=== PATIENT | female | born 2000 | race Caucasian/White ===

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

== ENCOUNTER 2022-02-20 09:58 | Emergency (ER) | payer OTHER ==
[2022-02-20 10:06] VITALS: BP 141/85; PULSE 80; TEMP 97.7; BMI 34.8
[2022-02-20] MEDS ORDERED: FLUCONAZOLE 150 MG TABLET PO ONE ×2 (10:46→11:36)
[2022-02-20 11:30] LABS: HCG,QUALITATIVE URINE Negative
[2022-02-20 11:32] LABS: URINE APPEARANCE CLOUDY; URINE BILIRUBIN NEGATIVE (NEGATIVE); URINE COLOR YELLOW; URINE GLUCOSE (UA) NEGATIVE (NEGATIVE); URINE KETONE TRACE (NEGATIVE)
[2022-02-20 11:33] LABS: PH,URINE 5.5 (5.0-8.0); URINE LEUK ESTERASE 2+ (NEGATIVE); URINE NITRITE NEGATIVE (NEGATIVE); URINE PROTEIN TRACE (NEGATIVE)
[2022-02-20 13:39] LABS: EPI CELLS >36 /uL (0-25.1); HYALINE CASTS 7 /uL (0-3.1); URINE BACTERIA 618 /uL (0-1359); URINE RBC 20 /uL (0-23.9); URINE WBC 271 /uL (0-25.8)
[2022-02-20 14:08] LABS: URINE CRYSTALS NEGATIVE /hpf
== END 2022-02-20 11:56 | disposition home or self-care (01) ==
LOC: JERFT 09:58 → JER 09:58 → JERFT 11:56
DX: N76.0 Acute vaginitis (principal)
CPT/HCPCS: 36415; 81003; 84703; 86593; 86780; 87070; 87086; 87205; 87491; 87529; 87591; 99283-25

== ENCOUNTER 2023-02-05 12:45 | Emergency (ER) | payer SELFPAY ==
[2023-02-05 12:50] VITALS: BP 132/72; PULSE 78; RESP 20; TEMP 98; BMI 31.4
[2023-02-05 13:18] LABS: BASO % 0.3 % (0-2.0); EOS % 0.1 % (0-4.5); HEMATOCRIT 40.4 % (32.4-45.2); HEMOGLOBIN 13.4 GM/dL (10.7-15.3); LYMPH % 15.6 % (8-40); MCH 28.3 pg (25.7-33.7); MCHC 33.2 g/dl (32.0-36.0); MEAN CELL VOLUME 85.4 fl (80-96); MEAN PLT VOLUME 10.9 fl (7.5-11.1); MONO % 4.8 % (3.8-10.2); NEUT % 79.2 % (42.8-82.8); PLATELET COUNT 197 10^3/uL (134-434); RBC 4.73 M/mm3 (3.60-5.2); WHITE BLOOD COUNT 11.7 K/mm3 (4.0-10.0)
[2023-02-05 13:22] LABS: HCG,QUALITATIVE URINE Negative
[2023-02-05] MEDS ORDERED: SODIUM CHLORIDE 1,000 ML IV STA ×2 (13:55→14:49)
[2023-02-05] MEDS ORDERED: ACETAMINOPHEN 1000 MG/100 ML BAG IVPB ONE ×2 (13:55→14:49)
[2023-02-05] MEDS ORDERED: FAMOTIDINE 20 MG/50 ML IVPB 20 MG/50 ML MG IVPB ONE ×3 (13:55→14:58)
[2023-02-05] MEDS ORDERED: ONDANSETRON 4 MG/2 ML VIAL IVPUSH ONE ×3 (13:55→15:29)
[2023-02-05] MEDS ORDERED: FAMOTIDINE 20 MG TABLET PO ONE (14:03)
[2023-02-05] MEDS ORDERED: ONDANSETRON 4 MG TABLET PO ONE (14:03)
[2023-02-05] MEDS ORDERED: ACETAMINOPHEN 500 MG TABLET (FP) PO ONE (14:05)
[2023-02-05] MEDS ORDERED: FAMOTIDINE 20 MG TABLET ONE (14:10)
[2023-02-05] MEDS ORDERED: ONDANSETRON *ODT* 4 MG TABLET ONE (14:11)
[2023-02-05 14:12] LABS: EPI CELLS >36 /uL (0-25.1); HYALINE CASTS 334 /uL (0-3.1); PH,URINE 6.5 (5.0-8.0); URINE APPEARANCE CLEAR; URINE BACTERIA 4 /uL (0-1359); URINE BILIRUBIN 1+ (NEGATIVE); URINE COLOR RED; URINE GLUCOSE (UA) NEGATIVE (NEGATIVE); URINE KETONE NEGATIVE (NEGATIVE); URINE LEUK ESTERASE 1+ (NEGATIVE); URINE NITRITE NEGATIVE (NEGATIVE); URINE PROTEIN 3+ (NEGATIVE); URINE UROBILINOGEN 0.2 mg/dL (0.2-1.0); URINE WBC 251 /uL (0-25.8)
[2023-02-05] MEDS ORDERED: ACETAMINOPHEN 500 MG TABLET (FP) ONE (14:12)
[2023-02-05 14:30] LABS: CHLORIDE 113 mmol/L (98-107); POTASSIUM 4.4 mmol/L (3.5-5.1); SODIUM 141 mmol/L (136-145)
[2023-02-05 14:31] LABS: CALCIUM 9.6 mg/dL (8.5-10.1)
[2023-02-05 14:32] LABS: ALBUMIN 4.4 g/dl (3.4-5.0); ANION GAP 4 MMOL/L (8-16); BLOOD UREA NITROGEN 12.2 mg/dL (7-18); CO2 25 mmol/L (21-32); GLUCOSE,RANDOM 107 mg/dL (74-106)
[2023-02-05 14:35] LABS: CREATININE 0.8 mg/dL (0.55-1.3); SGOT/AST 14 U/L (15-37); SGPT/ALT 27 U/L (13-61)
[2023-02-05 14:37] LABS: ALK PHOS 53 U/L (45-117); BILIRUBIN,TOTAL 0.7 mg/dL (0.2-1)
[2023-02-05] MEDS ORDERED: ACETAMINOPHEN INJECTION 100 ML IVPB ONE (14:57)
[2023-02-05] MEDS ORDERED: ONDANSETRON 4 MG/2 ML VIAL ONE ×2 (14:57→15:31)
[2023-02-05] MEDS: SODIUM CHLORIDE 1,000 ML IV STA ×2 (15:27→15:30)
[2023-02-05] MEDS ORDERED: KETOROLAC TROMETHAMINE 15 MG/ML VIAL IVPUSH ONE (15:28)
[2023-02-05] MEDS ORDERED: KETOROLAC TROMETHAMINE 15 MG/ML VIAL ONE (15:31)
== END 2023-02-05 16:34 | disposition home or self-care (01) ==
LOC: JER 12:45
PROC: 3E033GC Introduction of Other Therapeutic Substance into Peripheral Vein, Percutaneous Approach (ICD-10-PCS; principal; 2023-02-05)
PROC: 3E033NZ Introduction of Analgesics, Hypnotics, Sedatives into Peripheral Vein, Percutaneous Approach (ICD-10-PCS; 2023-02-05)
PROC: 3E0333Z Introduction of Anti-inflammatory into Peripheral Vein, Percutaneous Approach (ICD-10-PCS; 2023-02-05)
PROC: 3E033GC Introduction of Other Therapeutic Substance into Peripheral Vein, Percutaneous Approach (ICD-10-PCS; 2023-02-05)
PROC: 3E033GC Introduction of Other Therapeutic Substance into Peripheral Vein, Percutaneous Approach (ICD-10-PCS; 2023-02-05)
PROC: 3E033GC Introduction of Other Therapeutic Substance into Peripheral Vein, Percutaneous Approach (ICD-10-PCS; 2023-02-05)
PROC: 3E0337Z Introduction of Electrolytic and Water Balance Substance into Peripheral Vein, Percutaneous Approach (ICD-10-PCS; 2023-02-05)
DX: N93.8 Other specified abnormal uterine and vaginal bleeding (principal); R10.2 Pelvic and perineal pain; R11.2 Nausea with vomiting, unspecified; R10.30 Lower abdominal pain, unspecified; M54.9 Dorsalgia, unspecified
CPT/HCPCS: 36415; 80053; 81003; 84702; 84703; 85025; 86850; 86900; 86901; 99284-25

== ENCOUNTER 2023-02-06 08:20 | Emergency (ER) | payer SELFPAY ==
[2023-02-06 08:27] VITALS: BP 115/78; PULSE 79; RESP 18; TEMP 97.8; BMI 32.1
[2023-02-06] MEDS ORDERED: LACTATED RINGERS SOLUTION 1,000 ML/1,000 ML INFUS.BAG IV ONE (09:06)
[2023-02-06] MEDS ORDERED: METOCLOPRAMIDE HCL INJECTION 10 MG/2 ML VIAL IVPUSH ONE (09:06)
[2023-02-06] MEDS ORDERED: METOCLOPRAMIDE HCL INJECTION 10 MG/2 ML VIAL ONE (09:38)
[2023-02-06 10:09] LABS: BASO % 0.2 % (0-2.0); HEMATOCRIT 38.7 % (32.4-45.2); HEMOGLOBIN 12.6 GM/dL (10.7-15.3); LYMPH % 12.3 % (8-40); MCH 28.5 pg (25.7-33.7); MCHC 32.5 g/dl (32.0-36.0); MEAN CELL VOLUME 87.7 fl (80-96); MEAN PLT VOLUME 11.5 fl (7.5-11.1); MONO % 7.9 % (3.8-10.2); NEUT % 79.6 % (42.8-82.8); PLATELET COUNT 200 10^3/uL (134-434); RBC 4.41 M/mm3 (3.60-5.2); WHITE BLOOD COUNT 13.7 K/mm3 (4.0-10.0)
[2023-02-06] MEDS ORDERED: ONDANSETRON 4 MG/2 ML VIAL ONE ×2 (10:24→10:59)
[2023-02-06] MEDS ORDERED: ONDANSETRON 4 MG/2 ML VIAL IVPUSH ONE (10:24)
[2023-02-06 10:27] LABS: POTASSIUM 4.2 mmol/L (3.5-5.1)
[2023-02-06 10:28] LABS: CALCIUM 9.7 mg/dL (8.5-10.1)
[2023-02-06 10:29] LABS: BLOOD UREA NITROGEN 20.6 mg/dL (7-18)
[2023-02-06 10:32] LABS: CREATININE 1.1 mg/dL (0.55-1.3)
[2023-02-06] MEDS ORDERED: MAG HYDROX/AL HYDROX/SIMETH 30 ML UNIT-DOSE CUP PO ONE (11:25)
[2023-02-06] MEDS ORDERED: FAMOTIDINE 20 MG TABLET PO ONE (11:27)
[2023-02-06] MEDS ORDERED: MAG HYDROX/AL HYDROX/SIMETH 30 ML UNIT-DOSE CUP ONE (11:35)
[2023-02-06] MEDS ORDERED: FAMOTIDINE 20 MG TABLET ONE (11:35)
[2023-02-06 12:13] LABS: EPI CELLS >36 /uL (0-25.1); HYALINE CASTS 2 /uL (0-3.1); PH,URINE 5.5 (5.0-8.0); URINE APPEARANCE CLOUDY; URINE BACTERIA 199 /uL (0-1359); URINE BILIRUBIN 1+ (NEGATIVE); URINE COLOR ORANGE; URINE GLUCOSE (UA) NEGATIVE (NEGATIVE); URINE KETONE 1+ (NEGATIVE); URINE LEUK ESTERASE 1+ (NEGATIVE); URINE NITRITE NEGATIVE (NEGATIVE); URINE PROTEIN 3+ (NEGATIVE); URINE RBC 2515 /uL (0-23.9); URINE UROBILINOGEN 0.2 mg/dL (0.2-1.0); URINE WBC 36 /uL (0-25.8)
== END 2023-02-06 11:47 | disposition home or self-care (01) ==
LOC: JER 08:20
PROC: 3E033GC Introduction of Other Therapeutic Substance into Peripheral Vein, Percutaneous Approach (ICD-10-PCS; principal; 2023-02-06)
PROC: 3E033GC Introduction of Other Therapeutic Substance into Peripheral Vein, Percutaneous Approach (ICD-10-PCS; 2023-02-06)
PROC: 3E0337Z Introduction of Electrolytic and Water Balance Substance into Peripheral Vein, Percutaneous Approach (ICD-10-PCS; 2023-02-06)
DX: R11.2 Nausea with vomiting, unspecified (principal)
CPT/HCPCS: 36415; 80048; 81003; 85025; 87086; 99284-25

== ENCOUNTER 2023-12-15 15:44 | Emergency (ER) | payer OTHER ==
[2023-12-15 15:49] VITALS: BP 121/75; PULSE 81; RESP 19; TEMP 98.6; BMI 30.7
[2023-12-15] MEDS ORDERED: ONDANSETRON *ODT* 4 MG TABLET ONE (16:31)
[2023-12-15] MEDS ORDERED: ACETAMINOPHEN 325 MG TABLET (FP) ONE (16:31)
[2023-12-15] MEDS: ACETAMINOPHEN 500 MG TABLET (FP) PO ONE (16:34)
[2023-12-15] MEDS: ONDANSETRON *ODT* 4 MG TABLET SL ONE (16:35)
[2023-12-15 16:38] LABS: HCG,QUALITATIVE URINE Positive
[2023-12-15 16:39] LABS: BASO % 0.2 % (0-2.0); EPI CELLS >36 /uL (0-25.1); HEMATOCRIT 37.7 % (32.4-45.2); HEMOGLOBIN 12.2 GM/dL (10.7-15.3); HYALINE CASTS 2 /uL (0-3.1); LYMPH % 14.7 % (8-40); MCH 29.4 pg (25.7-33.7); MCHC 32.4 g/dl (32.0-36.0); MEAN CELL VOLUME 90.8 fl (80-96); MEAN PLT VOLUME 10.7 fl (7.5-11.1); MONO % 5.6 % (3.8-10.2); NEUT % 79.5 % (42.8-82.8); PH,URINE >= 9.0 (5.0-8.0); PLATELET COUNT 164 10^3/uL (134-434); RBC 4.15 M/mm3 (3.60-5.2); RDW 13.6 % (11.6-15.6); URINE APPEARANCE TURBID; URINE BACTERIA 1218 /uL (0-1359); URINE BILIRUBIN NEGATIVE (NEGATIVE); URINE COLOR ORANGE; URINE GLUCOSE (UA) NEGATIVE (NEGATIVE); URINE KETONE TRACE (NEGATIVE); URINE LEUK ESTERASE 1+ (NEGATIVE); URINE NITRITE NEGATIVE (NEGATIVE); URINE PROTEIN 2+ (NEGATIVE); URINE RBC 3119 /uL (0-23.9); URINE WBC 130 /uL (0-25.8); WHITE BLOOD COUNT 10.4 K/mm3 (4.0-10.0)
[2023-12-15 17:04] LABS: POTASSIUM 4.1 mmol/L (3.5-5.1)
[2023-12-15 17:06] LABS: CALCIUM 8.8 mg/dL (8.5-10.1)
[2023-12-15 17:07] LABS: ALBUMIN 3.9 g/dl (3.4-5.0); BLOOD UREA NITROGEN 10.6 mg/dL (7-18)
[2023-12-15 17:10] LABS: CREATININE 0.7 mg/dL (0.55-1.3)
[2023-12-15 17:12] LABS: BILIRUBIN,TOTAL 0.6 mg/dL (0.2-1); TOT PROT 6.9 g/dl (6.4-8.2)
[2023-12-15] MEDS ORDERED: NITROFURANTOIN MACROCRYSTAL 50 MG CAPSULE (FP) ONE (17:17)
[2023-12-15] MEDS: NITROFURANTOIN MACROCRYSTAL 50 MG CAPSULE (FP) PO ONE (17:20)
== END 2023-12-15 20:11 | disposition home or self-care (01) ==
LOC: JER 15:44
DX: O20.9 Hemorrhage in early pregnancy, unspecified (principal); Z3A.00 Weeks of gestation of pregnancy not specified
CPT/HCPCS: 36415; 76817-TC; 80053; 81003; 84702; 84703; 85025; 86850; 86900; 86901; 87086; 99284-25; Q0162

== ENCOUNTER 2024-02-12 11:50 | Emergency (ER) | payer OTHER ==
[2024-02-12 12:26] VITALS: BP 135/78; PULSE 72; RESP 18; TEMP 98.3; BMI 30.7
[2024-02-12 12:53] LABS: EPI CELLS >36 /uL (0-25.1); HYALINE CASTS 2 /uL (0-3.1); URINE APPEARANCE CLOUDY; URINE BACTERIA 2255 /uL (0-1359); URINE BILIRUBIN NEGATIVE (NEGATIVE); URINE COLOR YELLOW; URINE GLUCOSE (UA) NEGATIVE (NEGATIVE); URINE KETONE NEGATIVE (NEGATIVE); URINE LEUK ESTERASE 1+ (NEGATIVE); URINE NITRITE NEGATIVE (NEGATIVE); URINE PROTEIN NEGATIVE (NEGATIVE); URINE RBC 10 /uL (0-23.9); URINE WBC 96 /uL (0-25.8)
[2024-02-12] MEDS: SODIUM CHLORIDE 0.9% 500 ML INFUS.BAG IV ONE (13:59)
[2024-02-12] MEDS: ACETAMINOPHEN 1000 MG/100 ML BAG IVPB ONE (14:00)
== END 2024-02-12 14:02 | disposition left against medical advice (07) ==
LOC: JER 11:50
DX: M54.50 Low back pain, unspecified (principal); G89.29 Other chronic pain; R10.84 Generalized abdominal pain; R11.0 Nausea
CPT/HCPCS: 81003; 87086; 99283-25